=== PATIENT | male | born 1980 | race Caucasian/White ===

== ENCOUNTER 2024-04-22 11:41 | Emergency (ER) | payer SELFPAY ==
[2024-04-22] VITALS (9 sets, daily range): BP systolic 140–171; BP diastolic 76–92
[~2024-04-22] VITALS: Ht 177.8 cm; Wt 86.0 kg
[2024-04-22] MEDS ORDERED: BUPIVACAINE HCL PF 0.5 % 50 MG/10 ML SDV STI ONE (12:20)
[2024-04-22] MEDS ORDERED: LIDOcaine HCl 1% (Local Anesth.) 20 ML VIAL STI ONE (12:20)
[2024-04-22] MEDS ORDERED: Diph, Acellular Pertussis, Tet 0.5 ML/VIAL (Tdap) SDV IM ONE (12:45)
[2024-04-22] MEDS ORDERED: NAPROXEN500 MG PO (13:42)
== END 2024-04-22 14:02 | disposition home or self-care (01) | DRG 563 ==
LOC: ED 11:41
PROC: 0RSXXZZ Reposition Left Finger Phalangeal Joint, External Approach (ICD-10-PCS; principal; 2024-04-22)
DX: S63.297A Dislocation of distal interphalangeal joint of left little finger, initial encounter (principal); S60.417A Abrasion of left little finger, initial encounter; X58.XXXA Exposure to other specified factors, initial encounter; Y93.H2 Activity, gardening and landscaping; Y92.007 Garden or yard of unspecified non-institutional (private) residence as the place of occurrence of the external cause